=== PATIENT | female | born 1995 | race Caucasian/White ===

== ENCOUNTER 2016-05-26 16:05 | Emergency (ER) | payer MEDICAID ==
--- NOTE | 2016-05-26 16:13 | PD ---
HPI Chief Complaint contractions Date Seen: May 26, 2016 Time Seen: 16:15 (Aureliano Titus MD R2) Travel History International Travel<30 Days: No Contact w/Intl Traveler<30Days: No (Aureliano Titus MD R2) History of Present Illness HPI 20 year old G1 at 30 weeks gestation with EDC of August 04. She is presenting with cramping and contractions that started this morning at 10 AM. She describes the contractions as coming every 5 mins and being 8/10 pain, causing her to have to lie down. She has nausea with no vomiting. She has pain and pressure in the pelvic area. She has no dysuria or vaginal bleeding. She has good movements. She has no loss of fluids. She gets OB care at [facility] and reports no significant problems during this . (Aureliano Titus MD R2) History Past Medical History Medical History: Denies Significant Hx (Aureliano Tiuts MD) Obstetric History Obstetric History G1 at 30 weeks gestation Care at [facility] No complciations reported in this Taking vitamins (Aureliano Titus MD R2) Past Surgical History Narrative Surgical [place] teeth extraction (Aureliano Titus MD R2) Family History Family History: Negative (Aureliano Titus MD) Social History Alcohol Use: No Tobacco Use: No Substance Abuse: No (Aureliano Titus MD) Allergies-Medications (Allergen,Severity, Reaction): Coded Allergies: No Known Allergies (Unverified , 12/28/15) Home Meds No Active Prescriptions or Reported Meds Review of Systems Except as stated in HPI: all other systems reviewed are Neg (Aureliano Titus MD R2) Physical Exam Narrative GENERAL: Well-nourished, well-developed patient. SKIN: Warm and dry. HEAD: Normocephalic and atraumatic. EYES: No scleral icterus. No injection or drainage. ENT: No nasal drainage noted. Mucous membranes pink. Airway patent. NECK: Supple, trachea midline. No JVD. CARDIOVASCULAR: Regular rate and rhythm without murmurs, gallops, or rubs. RESPIRATORY: Breath sounds equal bilaterally. No accessory muscle use. ABDOMEN/GI: Abdomen soft, non-tender, bowel sounds present, no rebound, no guarding Gravid to 30 weeks size GENITOURINARY: External Genitalia: intact and normal in appearance Dilatation: 0 Effacement: long Station: Presentation: [-] Membranes: intact Uterine Contractions: none FHT's: Category: 1 Baseline: 150's Reactive: yes Variability: moderate Decels: none EXTREMITIES: No cyanosis or edema. BACK: Nontender without obvious deformity. No CVA tenderness. NEUROLOGICAL: Awake and alert. Motor and sensory grossly within normal limits. Five out of 5 muscle strength in all muscle groups. Normal speech. (Aureliano Titus MD R2) Data Data Vital Signs Reviewed: Yes (Aureliano Titus MD R2) MDM Medical Record Reviewed: Yes Interpretation(s) 20 year old G1 presenting with sensation of contractions and nausea. - Monitor for contractions - Oral hydration - If contractions present, obtain UA and FFN Narrative Course / MDM 20 year old G1 presenting with sensation of contractions and nausea. - One contraction total over 30 minute period - Reassuring strip - Cervix closed - Likely round ligament pain - Counseled on labor precautions, follow up with OB (Aureliano Titus MD R2) Attending Attestation The exam, history, and the medical decision-making described in the above note were completed with the assistance of the resident provider. I reviewed and agree with the findings presented. I attest that I had a [id number] encounter with the patient on the same day, and personally performed and documented my assessment and findings in the medical record. (Cintia Maynard MD) Diagnosis Diagnosis: Primary Impression: Round ligament pain Disposition: 01 DISCHARGE HOME Condition: Good Scripts No Active Prescriptions or Reported Meds Aureliano Titus MD R2 May 26, 2016 16:13 Cintia Maynard MD May 26, 2016 17:16
== END 2016-05-26 18:46 | disposition home or self-care (01) ==
LOC: HOBED 16:05
DX: O26.93 Pregnancy related conditions, unspecified, third trimester (principal); R10.2 Pelvic and perineal pain; Z3A.30 30 weeks gestation of pregnancy
CPT/HCPCS: 99284

== ENCOUNTER 2016-05-28 15:44 | Emergency (ER) | payer MEDICAID ==
--- NOTE | 2016-05-28 16:19 | PD ---
HPI Chief Complaint coughing, sneezing, sore throat Date Seen: May 28, 2016 Time Seen: 16:15 Travel History International Travel<30 Days: No Contact w/Intl Traveler<30Days: No History of Present Illness HPI 20 year old G1 at 30/2 weeks gestation with EDC of August 04. She is presenting with runny nose, coughing with yellow sputum, sore throat, and generalized body aches that started two days ago. She had three episodes of soft stools. No abdominal pain. Has mild nausea, no vomiting. She has no dyspnea or fevers. She has a history of asthma and is using her inhaler 4X a day for the last two days. She has good movements, no contractions, no vaginal bleeding, no loss of fluids. She did not get a flu shot this year. History Past Medical History Medical History: Denies Significant Hx Obstetric History Obstetric History G1 at 30 weeks gestation Care at [facility] No complciations reported in this Taking vitamins Past Surgical History Narrative Surgical [place] teeth extraction Family History Family History: Negative Social History Alcohol Use: No Tobacco Use: No Substance Abuse: No Allergies-Medications (Allergen,Severity, Reaction): Coded Allergies: No Known Allergies (Unverified , 12/28/15) Home Meds Active Scripts Azithromycin 500 Mg [id number] Mg PO DAILY #7 TAB Ref 0 Prov:Aureliano Titsu MD R2 05/28/16 Review of Systems Except as stated in HPI: all other systems reviewed are Neg Physical Exam Narrative GENERAL: Well-nourished, well-developed patient. SKIN: Warm and dry. HEAD: Normocephalic and atraumatic. EYES: No scleral icterus. No injection or drainage. ENT: No nasal drainage noted. Mucous membranes pink. Airway patent. NECK: Supple, trachea midline. No JVD. CARDIOVASCULAR: Regular rate and rhythm without murmurs, gallops, or rubs. RESPIRATORY: Breath sounds equal bilaterally. No accessory muscle use. ABDOMEN/GI: Abdomen soft, non-tender, bowel sounds present, no rebound, no guarding Gravid to 30 weeks size FHT's: Category: 1 Baseline: 140's Reactive: yes Variability: moderate Decels: none EXTREMITIES: No cyanosis or edema. BACK: Nontender without obvious deformity. No CVA tenderness. NEUROLOGICAL: Awake and alert. Motor and sensory grossly within normal limits. Five out of 5 muscle strength in all muscle groups. Normal speech. Data Data Vital Signs Reviewed: Yes MDM Medical Record Reviewed: Yes Interpretation(s) 20 year old G1 at 30/2 weeks gestation with EDC of August 04. She is presenting with runny nose, coughing with yellow sputum, sore throat, and generalized body aches that started two days ago. Likely viral URI. Also has history of asthma. - Tylenol 650 mg by mouth. - Encourage oral hydration. - Flu swab, encourage flu vaccine as outpatient - Continue using albuterol inhaler at home, follow up with PCP or OB within 2 to 3 days. - Return to OB ED for shortness of breath. Discussed with Dr. Graham Narrative Course / MDM 20 year old G1 at 30/2 weeks gestation with EDC of August 04 presents with URI, likely viral. - Can take Tylenol for symptom relief. - Azithromycin in case of bacterial superinfection. - Claritin PRN for runny nose. - Encourage good hydration - Continue using albuterol inhaler at home - Follow up with PCP or OB within 2 to 3 days. - Recommend flu vaccine. - Return to OB ED for shortness of breath. Discussed with Dr. Graham Diagnosis Diagnosis: Primary Impression: Viral URI with cough Disposition: DISCHARGE HOME Condition: Good Scripts Azithromycin 500 Mg [id number] Mg PO DAILY #7 TAB Ref 0 Prov:Aureliano Titus MD R2 05/28/16 Aureliano Titus MD R2 May 28, 2016 16:19 Disposition: DISCHARGE HOME Condition: Good Scripts Azithromycin 500 Mg [id number] Mg PO DAILY #7 TAB Ref 0 Prov:Aureliano Titus MD R2 05/28/16 Aureliano Titus MD R2 May 28, 2016 16:19
[2016-05-28] MEDS ORDERED: ACETAMINOPHEN 325 MG TAB PO ONE (16:30)
[2016-05-28] MEDS ORDERED: AZIT500T2 PO (17:23)
--- NOTE | 2016-05-28 17:29 | PD ---
History of Present Illness Date Seen: May 28, 2016 Time Seen: 16:30 History of Present Illness 30 wk IUP with URI signs and symptoms , no OB problem no bleeding SROM or CTXs , FHR reactive no CTX lungs clear flu swab negative Imp URI at 30 wks Plan - po Zpak , po antihistamines OTC& cough sryup PRN Tl Graham II, MD May 28, 2016 17:29
== END 2016-05-28 17:35 | disposition home or self-care (01) ==
LOC: HOBED 15:44
DX: J06.9 Acute upper respiratory infection, unspecified (principal); Z3A.30 30 weeks gestation of pregnancy
CPT/HCPCS: 87804; 99283

== ENCOUNTER 2016-07-13 11:15 | Emergency (ER) | payer MEDICAID ==
[~2016-07-13 11:15] MED LIST: AZIT500T2 PO
[2016-07-13 11:53] LABS: BLOOD, URINE NEG (NEG); COMMENT (UR) CULT NOT INDICATED; CULTURE IF INDICATED CULT NOT INDICATED; GLUCOSE,URINE NEG (NEG); KETONE, URINE NEG (NEG); MUCUS URINE FEW /lpf (OCC); NITRITE,URINE NEG (NEG); PH, URINE 6.5 (5.0-8.5); SQUAMOUS EPITHELIAL CELL URINE 10 /hpf (0-5); TRANSITIONAL EPI CELLS, URINE <1 /hpf; URINE COLOR YELLOW (YELLW/STRAW)
--- NOTE | 2016-07-13 11:54 | PD ---
HPI Chief Complaint lower abdomen cramping, pain with urination Date Seen: Jul 13, 2016 (Yonny Antunez MD R2) Travel History International Travel<30 Days: No Contact w/Intl Traveler<30Days: No (Yonny Antunez MD R2) History of Present Illness HPI Ms. Lambert is a 20 yo G1 at 36 6/7 weeks (DYLAN 08/04/2016) who presents with complaint of lower abdominal pressure and pain after urinating. Ms. Lambert states that these symptoms began this morning at approximately 3 AM; they've gradually worsened since she has been at work this morning. Patient reports that cramping is constant in nature rather than occurring at regular intervals. He reports the cramping is worsened after urination. Patient is urinating more frequently. Patient does not report fever or chills. Normal movement. Patient does not report vaginal bleeding or discharge. Patient reports unremarkable history with exception of mild asthma controlled with albuterol. Patient states she was swabbed for GBS last week but does not know her result. Para: 0 : 1 (Yonny Antunez MD R2) History Past Medical History Narrative Medical Asthmacontrolled with albuterol (Yonny Antunez MD R2) Obstetric History Obstetric History G1 (Yonny Antunez MD R2) Past Surgical History Surgical History: No Previous Surgery (Yonny Antunez MD R2) Family History Family History: Negative (Yonny Antunez MD R2) Social History Alcohol Use: No Tobacco Use: No Substance Abuse: No (Yonny Antunez MD R2) Allergies-Medications (Allergen,Severity, Reaction): Coded Allergies: No Known Allergies (Unverified , 12/28/15) Home Meds Active Scripts Azithromycin 500 Mg [id number] Mg PO DAILY #7 TAB Ref 0 Prov:Aureliano Titus MD R2 05/28/16 Review of Systems General / Constitutional: No: Fever, Chills Cardiovascular: No: Chest Pain or Discomfort Respiratory: No: Short of Breath Gastrointestinal: Abdominal Pain (lower 1 day), No: Vomiting Genitourinary: Frequency, Dysuria (Yonny Antunez MD R2) Physical Exam T 98.2 RR 18 BP 110/75 HR 75 Narrative GENERAL: Well-nourished, well-developed patient. SKIN: Warm and dry. HEAD: Normocephalic and atraumatic. EYES: No scleral icterus. No injection or drainage. ENT: No nasal drainage noted. Mucous membranes pink. Airway patent. CARDIOVASCULAR: Regular rate and rhythm without murmurs. RESPIRATORY: CTAB, normal rate ABDOMEN/GI: Abdomen soft, non-tender, bowel sounds present, no rebound, no guarding Gravid EXTREMITIES: No cyanosis or edema. NEUROLOGICAL: Awake and alert. Motor and sensory function grossly within normal limits. GENITOURINARY: External Genitalia: intact and normal in appearance Cervix: Dilatation:1 Effacement: 20% Station: -2 Presentation: V Membranes: Intact Uterine Contractions: Occ/irritability FHT's: Category:1 Baseline: 130 Reactive: Y Variability: Mod Decels: None (Yonny Antunez MD R2) Data Data Orders Urinalysis - C+S If Indicated (07/13/16 11:35) (Yonny Antunez MD R2) MDM Medical Record Reviewed: Yes Narrative Course / MDM 20 yo G1 at 36 6/7 weeks (DYLAN 08/04/2016) -Complaint of lower abdominal cramping/dysuria -Cat 1 rhythm -Cervix 1/20%/-2 -Irritability; no obvious contractions on CTG -PMH asthma; exam w/o wheezing and no respiratory complaints currently Plan: -Will check UA -Will monitor EFM Interval: UA resulted- not suggestive of UTI EFM reassuring No evidence of contractions; irritability Updated Plan: Due to lack of evidence of UTI, suspect patient's lower abdominal pain due to positioning, ligamentous pain, and/or uterine irritability. Patient reassured regarding benign etiology of her symptoms, and encouraged to follow up with her OBGYN. Patient also encouraged to stay hydrated. (Yonny Antunez MD R2) Plan Patient seen and examined. Agree with resident's assessment. Patient denies dysuria or hematuria. Hydration encouraged. (Jing Barrera MD) Diagnosis Diagnosis: Primary Impression: Round ligament pain Disposition: 01 DISCHARGE HOME Condition: Stable Patient Instructions: General Instructions, Early Labor Signs (ED) Departure Forms: Tests/Procedures, Work Release Enter return to work date: Jul 14, 2016 Yonny Antunez MD R2 Jul 13, 2016 11:54 Jing Barrera MD Jul 13, 2016 12:36
== END 2016-07-13 12:33 | disposition home or self-care (01) ==
LOC: HOBED 11:15
DX: O99.52 Diseases of the respiratory system complicating childbirth (principal); R10.2 Pelvic and perineal pain; R30.0 Dysuria; J45.909 Unspecified asthma, uncomplicated; Z3A.36 36 weeks gestation of pregnancy
CPT/HCPCS: 59025; 81001

== ENCOUNTER → 2016-07-18 | Emergency (ER) | payer MEDICAID ==
[~2016-07-18] MED LIST changes: +FERR325T PO; +IBUP-232 PO
--- NOTE | 2016-07-18 01:20 | PD ---
HPI Chief Complaint Lightheaded, feeling poorly after iron infusion Date Seen: Jul 18, 2016 Time Seen: 01:10 Travel History International Travel<30 Days: No Contact w/Intl Traveler<30Days: No Known Affected Area: No History of Present Illness HPI 20-year-old primigravida at 37+ weeks gestation who was just discharged from the outpatient unit in [facility] after receiving an iron infusion this evening. The patient states that she was there for about 8 hours getting her iron infusion with minimal oral intake. She felt lightheaded on the way home and became concerned and came here for evaluation. Para: 0 : 1 History Past Medical History Narrative Medical Asthma for which she uses an albuterol inhaler Obstetric History Obstetric History Primigravida with an uncomplicated course with the exception of iron deficiency Past Surgical History Narrative Surgical None Family History Family History: Negative Social History Alcohol Use: No Tobacco Use: No Substance Abuse: No Allergies-Medications (Allergen,Severity, Reaction): Coded Allergies: No Known Allergies (Unverified , 12/28/15) Home Meds Active Scripts Azithromycin 500 Mg [id number] Mg PO DAILY #7 TAB Ref 0 Prov:Aureliano Titus MD R2 05/28/16 Review of Systems Except as stated in HPI: all other systems reviewed are Neg Physical Exam Narrative GENERAL: Well-nourished, well-developed patient. SKIN: Warm and dry. HEAD: Normocephalic and atraumatic. EYES: No scleral icterus. No injection or drainage. ENT: No nasal drainage noted. Mucous membranes pink. Airway patent. NECK: Supple, trachea midline. No JVD. CARDIOVASCULAR: Regular rate and rhythm without murmurs, gallops, or rubs. RESPIRATORY: Breath sounds equal bilaterally. No accessory muscle use. ABDOMEN/GI: Abdomen soft, non-tender, bowel sounds present, no rebound, no guarding Gravid to [-] weeks size Fundal Height: [-] GENITOURINARY: External Genitalia: intact and normal in appearance BUS glands: [-] Cervix: [-] Dilatation: [-] Effacement: [-] Station: [-] Presentation: [-] Membranes: [intact or ruptured] Uterine Contractions: [-] FHT's: Category: [-] Baseline: [-] Reactive: [-] Variability: [-] Decels: [-] EXTREMITIES: No cyanosis or edema. BACK: Nontender without obvious deformity. No CVA tenderness. NEUROLOGICAL: Awake and alert. Motor and sensory grossly within normal limits. Five out of 5 muscle strength in all muscle groups. Normal speech. Data Data Vital Signs Reviewed: Yes MDM Medical Record Reviewed: No Narrative Course / MDM Assessment: 37+ week intrauterine with near syncope following iron infusion Plan: Her vital signs are stable here with excellent oxygen saturation and no evidence of acute allergic reaction. The heart rate is category 1. Her urine is quite concentrated and she admits to minimal oral intake over the past 8 hours. She is encouraged with oral hydration and asked to follow up as planned with her care team. Diagnosis Diagnosis: Primary Impression: 37 weeks gestation of Additional Impression: Vasovagal near syncope Disposition: 01 DISCHARGE HOME Condition: Good Abdoulaye Gómez MD Jul 18, 2016 01:20
== END | disposition home or self-care (01) ==
LOC: HOBED 00:01
DX: O26.93 Pregnancy related conditions, unspecified, third trimester (principal); O99.513 Diseases of the respiratory system complicating pregnancy, third trimester; R55 Syncope and collapse; J45.909 Unspecified asthma, uncomplicated; Z3A.37 37 weeks gestation of pregnancy
CPT/HCPCS: 59025

== ENCOUNTER 2016-07-30 11:57 | Inpatient (IN) | payer MEDICAID ==
[~2016-07-30] VITALS: Ht 152.4 cm; Wt 64.0 kg
[2016-07-30] VITALS (56 sets, daily range): BP systolic 102–135; BP diastolic 63–105; PULSE 52–86; RESP 16–18; TEMP 97.4–98.4
[~2016-07-30 11:57] MED LIST changes: -FERR325T PO; -IBUP-232 PO
--- NOTE | 2016-07-30 12:42 | PD ---
HPI Chief Complaint Contractions Date Seen: Jul 30, 2016 Travel History International Travel<30 Days: No Contact w/Intl Traveler<30Days: No History of Present Illness HPI Ms. Lambert is a 21 yo G1 at 39 2/7 weeks (DYLAN 08/04/2016) who presents with contractions. Patient reports that she began feeling contractions at approximately 1 AM last night and thought she had possible rupture membranes; she sought evaluation [facility] for for these at approximately 2 AM. Per patient, and it are was performed and was negative. Patient states that she was dilated to 1 cm on cervical exam. Since initial evaluation, patient states that she has had gradual worsening of contractions and that they're occurring every 23 minutes. Patient states that she has not had any additional leakage of vaginal fluid suspicious for ruptured membranes this morning. Patient denies vaginal bleeding. Patient reports normal movement. Patient does not report headache, visual changes, shortness of breath, leg swelling, or dysuria. Patient reports unremarkable history with exception of anemia requiring iron transfusion. Per EMR, patient's hemoglobin was 11.8 12/2015. [ Per discussion with OB ED staff, patient's records not available until 1 PM]. Patient reports reassuring labs and ultrasounds during . Para: 0 : 1 History Past Medical History Narrative Medical Asthmacontrolled with albuterol Anemia requiring iron transfusion during Obstetric History Obstetric History G1 Past Surgical History Surgical History: No Previous Surgery Family History Family History: Negative Social History Alcohol Use: No Tobacco Use: No Substance Abuse: No Allergies-Medications (Allergen,Severity, Reaction): Coded Allergies: No Known Allergies (Unverified , 12/28/15) Home Meds Active Scripts Azithromycin 500 Mg [id number] Mg PO DAILY #7 TAB Ref 0 Prov:Aureliano Titus MD R2 05/28/16 Review of Systems General / Constitutional: No: Fever, Chills HENT: No: Headaches Cardiovascular: No: Chest Pain or Discomfort Respiratory: No: Short of Breath Gastrointestinal: Abdominal Pain (with contractions), No: Vomiting Genitourinary: No: Dysuria Physical Exam BP 127/81 HR 90 T 98.3 RR 18 Narrative GENERAL: Well-nourished, well-developed patient. SKIN: Warm and dry. HEAD: Normocephalic and atraumatic. EYES: No scleral icterus. No injection or drainage. ENT: No nasal drainage noted. Mucous membranes pink. Airway patent. NECK: Supple, trachea midline. No JVD. CARDIOVASCULAR: Regular rate and rhythm without murmurs. RESPIRATORY: CTAB, normal rate ABDOMEN/GI: Abdomen soft, non-tender, bowel sounds present, no rebound, no guarding Gravid EXTREMITIES: No cyanosis or edema. NEUROLOGICAL: Awake and alert. Motor and sensory function grossly within normal limits. GENITOURINARY: External Genitalia: intact and normal in appearance Cervix: Dilatation: 3 Effacement: 90% Station:0 Presentation: Vertex Membranes: Intact Uterine Contractions: Q23 minutes FHT's: Category: 1 Baseline: 130 Reactive: Y Variability: Moderate Decels: None Data Data Vital Signs Reviewed: Yes MDM Medical Record Reviewed: Yes Narrative Course / MDM 21 yo G1 at 39 2/7 weeks (DYLAN 08/04/2016) who presents with contractions -Contractions 23 minutes -Cervix 3/90%/0 -Category 1 rhythm -GBS negative - records pending Plan: -Will monitor EFM -Will recheck cervix in ~1 hr Interval: -On recheck cervical dilation to 5 cm -Will plan to admit for active labor Yonny Antunez MD R2 Jul 30, 2016 12:42
[2016-07-30] MEDS ORDERED: LACTATED RINGER'S 1000 ML INJ 1,000 ML IV PRN (13:48)
--- NOTE | 2016-07-30 13:48 | PD ---
History of Present Illness Date Seen: Jul 30, 2016 History of Present Illness Attending note; This patient is a 21-year-old 1 para 0 presently 39 weeks and 2 days who presented with the onset of contractions every 2-3 minutes denies ruptured membranes or vaginal bleeding care with the [facility] [employer] courses been unremarkable . GBS is negative per the car that the patient has with her No known drug allergies No major medical problems On reexamination after allowing the patient to walk she is 100% effaced 5 cm dilated with the vertex at a 0 station Blood pressure is 127/81 Assessment IUP at 39 weeks and 2 days Active labor GBS negative Plan Admit External monitoring IV fluid hydration CBC type and screen Epidural for pain management Anticipate vaginal delivery Faby Fitzgerald MD Jul 30, 2016 13:47
[2016-07-30] MEDS ORDERED: SODIUM CHLORID 0.9% 500 ML INJ 500 ML IV PRN (14:00)
[2016-07-30] MEDS ORDERED: LIDOCAINE HCL 1% 50 ML VIAL I-DERMAL PRN (14:00)
[2016-07-30] MEDS ORDERED: CITRIC ACID-SODIUM CITRATE LIQ 30 ML UDC PO SCH (14:00)
[2016-07-30] MEDS ORDERED: OXYTOCIN 30 UNITS-500ML PREMIX 500 ML IV ONE (14:00)
[2016-07-30] MEDS ORDERED: LIDOCAINE HCL 1% 50 ML VIAL INFIL PRN (14:00)
[2016-07-30] MEDS ORDERED: MINERAL OIL 10 ML VIAL TOPICAL PRN (14:00)
[2016-07-30 14:08] LABS: AUTOMATED NEUTROPHIL # 7.5 TH/MM3 (1.8-7.7); BASOPHIL # 0.1 TH/MM3 (0-0.2); BASOPHIL % 0.8 % (0.0-2.0); EOSINOPHIL % 0.3 % (0.0-4.0); HEMATOCRIT 29.9 % (35.0-46.0); HEMO FLAGS AUTO DIFF; LYMPH % 16.1 % (9.0-44.0); LYMPHOCYTE # 1.6 TH/MM3 (1.0-4.8); MEAN CELL VOLUME 76.2 FL (80.0-100.0); MEAN CORPUSCULAR HEMOGLOBIN 23.6 PG (27.0-34.0); MONO % 5.6 % (0.0-8.0); NEUT % 77.2 % (16.0-70.0); PLATELET COUNT 142 TH/MM3 (150-450); RED BLOOD COUNT 3.92 MIL/MM3 (4.00-5.30); RED CELL DISTRIBUTION WIDTH 22.9 % (11.6-17.2); WHITE BLOOD COUNT 9.7 TH/MM3 (4.0-11.0)
[2016-07-30] MEDS ORDERED: SODIUM CHLOR 0.9% 1000 ML INJ 1,000 ML IV PRN (14:08)
[2016-07-30 14:12] LABS: BLOOD, URINE NEG (NEG); COMMENT (UR) CULT NOT INDICATED; CULTURE IF INDICATED CULT NOT INDICATED; GLUCOSE,URINE NEG (NEG); KETONE, URINE NEG (NEG); NITRITE,URINE NEG (NEG); SQUAMOUS EPITHELIAL CELL URINE 2 /hpf (0-5); URINE COLOR YELLOW (YELLW/STRAW)
[2016-07-30] MEDS ORDERED: ePHEDrine/NS 25 MG/5 ML SYR ONE (14:31)
[2016-07-30] MEDS ORDERED: fentaNYL 2MCG-BUPIV 0.125% INJ 100 ML ONE (14:31)
[2016-07-30 14:36] LABS: OVALOCYTES 1+ (NORMAL); SCAN/DIFF AUTO DIFF CONFIRMED; TEARDROP RBCS 1+ (NORMAL)
[2016-07-30 14:37] LABS: PLATELET ESTIMATE SMEAR LOW (NORMAL); PLATELET MORPHOLOGY ENLARGED (NORMAL)
[2016-07-30] MEDS ORDERED: ePHEDrine/NS 25 MG/5 ML SYR IV PRN (15:30)
--- NOTE | 2016-07-30 15:34 | PD.LABORPN ---
Subjective Subjective Patient is comfortable with an epidural Objective Vital Signs Vital Signs Date Time Temp Pulse Resp B/P Pulse Ox O2 Delivery O2 Flow Rate FiO2 07/30/16 15:15 70 119/77 07/30/16 15:15 64 07/30/16 15:10 67 07/30/16 15:10 69 116/76 07/30/16 15:07 72 116/75 07/30/16 15:05 78 07/30/16 15:00 78 07/30/16 15:00 72 117/74 07/30/16 14:55 67 120/75 07/30/16 14:55 97.6 67 18 07/30/16 14:51 73 07/30/16 14:51 102/81 07/30/16 14:50 72 07/30/16 14:46 81 07/30/16 14:46 129/87 07/30/16 14:45 73 07/30/16 14:41 112/84 07/30/16 14:41 80 07/30/16 14:40 67 128/105 07/30/16 14:35 66 07/30/16 14:30 62 07/30/16 14:26 66 122/79 07/30/16 14:25 18 07/30/16 14:25 85 Objective Pelvic Exam: Cervix: [-] Midline Dilatation: [-] 8 cm Effacement: [-] 100% effaced Station: [-] +1 station Presentation: [-] Vertex Membranes: [ ruptured] artificial rupture of membranes light meconium Uterine Contractions: [-] Irregular FHT's: Category: [-] Had what appeared to be a variable deceleration had been category 1 until that time with oxygen positional change and IV fluids reverted back to a category 1 Baseline: [-] 1:30 Reactive: [-] + Accelerations up to 150 Variability: [-] [id number] variability Decels: [-] A variable seen Assessment/Plan Assessment and Plan 21-year-old at term Active labor Will be entering second stage Light meconium Positional changes IV fluid hydration O2 Anticipate vaginal delivery Faby Fitzgerald MD Jul 30, 2016 15:34
[2016-07-30] MEDS: LACTATED RINGER'S 1000 ML INJ 1,000 ML IV SCH (15:58)
[2016-07-30] MEDS ORDERED: NO SYSTEM NARCOTICS PRN (16:00)
[2016-07-30] MEDS ORDERED: MEASLES, MUMPS, RUBELLA VACCINE 0.5 ML VIAL SQ ONE (16:00)
[2016-07-30] MEDS ORDERED: DO NOT ADMINISTER ANTICOAGULANTS PRN (16:00)
[2016-07-30] MEDS ORDERED: fentaNYL 2MCG-BUPIV 0.125% 100 ML EPIDURAL SCH (16:00)
[2016-07-30] MEDS ORDERED: DIPHTH/TETANUS/ACEL PERTUSSIS (BOOSTER) 0.5 ML VIAL/PFS IM ONE (16:00)
--- NOTE | 2016-07-30 18:26 | PD.OB.DELI ---
Delivery Date: Jul 30, 2016 Anesthesia: Epidural Episiotomy: None Vaginal Delivery: Normal Presentation: Occiput anterior Nuchal Cord: None Delayed cord clamping (45 sec): Yes : Female One Minute : 8 Five Minute : 9 Weight: 2935 Placenta: Spontaneous delivery Additional Information Patient progressed to completely dilated completely effaced, delivered over an intact perineum a viable female infant weight 2935 g Apgars of 8 at 1 minute and 9 at 5 minutes, placenta delivered Placenta delivered spontaneously and intact There was no lacerations Uterus is firm No active bleeding Estimated blood loss of 300 cc Mother stable baby stable Delivery review was done patient's questions answered Faby Fitzgerald MD Jul 30, 2016 18:26
[2016-07-30] MEDS ORDERED: ONDANSETRON ODT 4 MG TAB PO PRN (18:30)
[2016-07-30] MEDS ORDERED: ALUMINUM/MAGNESIUM/SIMETH 30 ML CUP PO PRN (18:30)
[2016-07-30] MEDS ORDERED: IBUPROFEN 600 MG TAB PO PRN (18:30)
[2016-07-30] MEDS ORDERED: WITCH HAZEL 50%/GLYCERIN 12.5% 40 PAD JAR TOPICAL PRN (18:30)
[2016-07-31] MEDS: ACETAMINOPHEN 325 MG TAB PO PRN (00:46)
--- NOTE | 2016-07-31 08:12 | HHI.OB ---
Subjective Post Day: 1 Remarks Ms. Lambert is a 21 yo who is PPD 1 from (07/30 at 1755) Ms. Lambert was afebrile with stable vital signs overnight. Patient reports that she is doing well at this time. Patient reports mild vaginal bleeding. Patient's pain is controlled at this time. Patient ambulating well. Patient reports dysuria yesterday which resolved. Patient does not report shortness or breath or leg swelling. No dizziness. Patient passing gas. Patient . Objective Vitals/I&O Vital Signs Date Time Temp Pulse Resp B/P Pulse Ox O2 Delivery O2 Flow Rate FiO2 07/30/16 21:00 97.6 52 18 118/74 07/30/16 19:46 69 120/73 07/30/16 19:45 16 07/30/16 19:23 98.4 07/30/16 19:22 16 07/30/16 19:16 78 106/70 07/30/16 18:46 58 114/94 07/30/16 18:37 18 07/30/16 18:31 66 131/85 07/30/16 18:15 97.4 18 07/30/16 18:15 63 126/82 07/30/16 18:01 86 127/63 07/30/16 17:45 72 07/30/16 17:45 82 135/91 07/30/16 17:30 59 122/83 07/30/16 17:30 62 07/30/16 17:15 67 120/83 07/30/16 17:15 68 07/30/16 17:10 65 07/30/16 17:05 64 07/30/16 17:00 65 07/30/16 17:00 62 123/72 07/30/16 16:55 78 07/30/16 16:50 71 07/30/16 16:45 75 123/81 07/30/16 16:45 71 07/30/16 16:40 61 07/30/16 16:36 97.7 18 07/30/16 16:30 73 07/30/16 16:30 62 116/81 07/30/16 16:25 64 07/30/16 16:20 59 07/30/16 16:15 64 117/84 07/30/16 16:10 67 07/30/16 16:05 67 07/30/16 16:00 78 07/30/16 16:00 71 120/78 07/30/16 15:59 18 07/30/16 15:56 18 07/30/16 15:55 70 07/30/16 15:50 65 07/30/16 15:46 62 121/75 07/30/16 15:45 67 07/30/16 15:40 59 07/30/16 15:35 64 07/30/16 15:30 58 123/76 07/30/16 15:30 61 07/30/16 15:25 54 07/30/16 15:22 65 119/72 07/30/16 15:20 58 07/30/16 15:15 70 119/77 07/30/16 15:15 64 07/30/16 15:10 67 07/30/16 15:10 69 116/76 07/30/16 15:07 72 116/75 07/30/16 15:05 78 07/30/16 15:00 78 07/30/16 15:00 72 117/74 07/30/16 14:55 67 120/75 07/30/16 14:55 97.6 67 18 07/30/16 14:51 73 07/30/16 14:51 102/81 07/30/16 14:50 72 07/30/16 14:46 81 07/30/16 14:46 129/87 07/30/16 14:45 73 07/30/16 14:41 112/84 07/30/16 14:41 80 07/30/16 14:40 67 128/105 07/30/16 14:35 66 07/30/16 14:30 62 07/30/16 14:26 66 122/79 07/30/16 14:25 18 07/30/16 14:25 85 Objective Remarks GENERAL: Well-nourished, well-developed patient. CARDIOVASCULAR: Regular rate and rhythm without murmurs. RESPIRATORY: CTAB, normal rate ABDOMEN/GI: Abdomen soft, non-tender. Fundus: Firm, non-tender at umbilicus. GENITOURINARY: Light to moderate bleeding. EXTREMITIES: No cyanosis or edema, non-tender, without signs of DVT. Medications and IVs Current Medications Medications (Trade) Dose Ordered Sig/Shira Route Start Time Stop Time Status Last Admin Lactated Ringer's 1,000 ml @ 125 mls/hr Q8H IV 07/30/16 13:48 07/30/16 15:58 Lactated Ringer's 1,000 ml @ 3,000 mls/hr Q20M PRN IV 07/30/16 13:48 (NS 1000 ml Inj) 1,000 ml @ 100 mls/hr Q10H PRN IV 07/30/16 14:08 (fentaNYL INJ) 50 mcg Q1H PRN IV PUSH 07/30/16 14:00 (fentaNYL INJ) 100 mcg Q1H PRN IV PUSH 07/30/16 14:00 (Muri-Lube Oil) 10 ml UNSCH PRN TOPICAL 07/30/16 14:00 Miscellaneous Information No systemic narcotics to be given except... UNSCH PRN .XX 07/30/16 16:00 07/31/16 15:59 Miscellaneous Information DO NOT ADMINISTER ANY ANTICOAGUL... UNSCH PRN .XX 07/30/16 16:00 07/31/16 15:59 (fentaNYL 2MCG-BUPIV 0.125% INJ) 100 ml @ 0 mls/hr TITRATE EPIDURAL 07/30/16 16:00 07/30/16 15:59 (ePHEDrine/NS 25 MG/5 ML SYR) 10 mg UNSCH PRN IV 07/30/16 15:30 07/31/16 15:29 (Tylenol) 650 mg Q4H PRN PO 07/30/16 18:30 07/31/16 00:46 (Motrin) 600 mg Q6H PRN PO 07/30/16 18:30 (Tucks Pads) 1 applic QID PRN TOPICAL 07/30/16 18:30 (Mag-Al Plus Susp Liq) 15 ml Q8H PRN PO 07/30/16 18:30 (Zofran Odt) 4 mg Q6H PRN PO 07/30/16 18:30 Assessment/Plan Problem List: (1) care and examination (2) Anemia Assessment and Plan 21 yo who is PPD 1 from (07/30 at 1755) Routine care -PRN Motrin/Percocet -Continue to encourage ambulation -Continue to encourage -Continue to monitor VS, vaginal bleeding -Continue stool softener -Encourage ; provide assistance as needed Anemia Impression: Hemoglobin 9.3 on admission; PMH anemia during to Hgb ~6 and requiring iron transfusion -Continue home Ferrous Sulfate 325mg TID Discharge Planning Anticipate discharge 08/01 Yonny Antunez MD R2 Jul 31, 2016 08:12
[2016-07-31] MEDS: FERROUS SULFATE 325 MG (65 MG ELEMENTAL IRON) TAB PO SCH ×2 (21:00→21:32)
[2016-08-01] MEDS: ACETAMINOPHEN 325 MG TAB PO PRN (03:22)
[2016-08-01 07:45] VITALS: BP 118/78; PULSE 58; RESP 20; TEMP 97.7
[2016-08-01] MEDS: LACTATED RINGER'S 1000 ML INJ 1,000 ML IV SCH (09:04)
[2016-08-01] MEDS: FERROUS SULFATE 325 MG (65 MG ELEMENTAL IRON) TAB PO SCH (09:08)
[2016-08-01] MEDS ORDERED: FERR325T PO (10:10)
[2016-08-01] MEDS ORDERED: IBUP-232 PO (10:10)
--- NOTE | 2016-08-01 10:10 | HHI.DCPOC ---
Discharge Care Plan Diagnosis: (1) care and examination Report Symptoms to Your Doctor -Temperate above 100.5 degrees -Unusual pain or calf pain -Increased vaginal bleeding -Painful or difficulty urinating -Feelings of extreme sadness or anxiety after 2 weeks Goals to Promote Your Health * To prevent worsening of your condition and complications * To maintain your health at the optimal level Directions to Meet Your Goals Take your medications as prescribed Follow your dietary instruction Follow activity as directed Ensure plenty of rest for recovery Drink fluids for hydration Keep your appointments as scheduled Take your immunizations and boosters as scheduled If your symptoms worsen call your PCP, if no PCP go to Urgent Care Center or Emergency Room Smoking is Dangerous to Your Health. Avoid second hand smoke Call the 24-hour crisis hotline for domestic abuse at Yonny Antunez MD R2 Aug 01, 2016 10:10
--- NOTE | 2016-08-01 10:14 | HHI.OB ---
Subjective Post Day: 2 Remarks Ms. Lambert is a 21 yo who is PPD 2 from (07/30 at 1755) Ms. Lambert was afebrile with stable vital signs overnight. Patient doing well; she still has some cramping pain controlled with Motrin. Patient reports mild vaginal bleeding. Patient ambulating well. No dysuria, shortness or breath, or leg swelling. Patient passing gas normally. Patient well. (Yonny Antunez MD R2) Remarks Patient seen and evaluated with resident under direct supervision, agree with assessment and plan. (Abdoulaye Gómez MD) Objective Vitals/I&O Vital Signs Date Time Temp Pulse Resp B/P Pulse Ox O2 Delivery O2 Flow Rate FiO2 08/01/16 07:45 97.7 58 20 118/78 Objective Remarks GENERAL: Well-nourished, well-developed patient. CARDIOVASCULAR: Regular rate and rhythm without murmurs. RESPIRATORY: CTAB, normal rate ABDOMEN/GI: Abdomen soft, non-tender. Fundus: Firm, non-tender at umbilicus. GENITOURINARY: Light to moderate bleeding. EXTREMITIES: No cyanosis or edema, non-tender, without signs of DVT. Medications and IVs Current Medications Medications (Trade) Dose Ordered Sig/Shira Route Start Time Stop Time Status Last Admin Lactated Ringer's 1,000 ml @ 125 mls/hr Q8H IV 07/30/16 13:48 07/30/16 15:58 Lactated Ringer's 1,000 ml @ 3,000 mls/hr Q20M PRN IV 07/30/16 13:48 (NS 1000 ml Inj) 1,000 ml @ 100 mls/hr Q10H PRN IV 07/30/16 14:08 (fentaNYL INJ) 50 mcg Q1H PRN IV PUSH 07/30/16 14:00 (fentaNYL INJ) 100 mcg Q1H PRN IV PUSH 07/30/16 14:00 Mineral Oil 10 ml 10 ml UNSCH PRN TOPICAL 07/30/16 14:00 (fentaNYL 2MCG-BUPIV 0.125% INJ) 100 ml @ 0 mls/hr TITRATE EPIDURAL 07/30/16 16:00 07/30/16 15:59 (Tylenol) 650 mg Q4H PRN PO 4/27/17 18:30 08/01/16 03:22 (Motrin) 600 mg Q6H PRN PO 07/30/16 18:30 (Tucks Pads) 1 applic QID PRN TOPICAL 07/30/16 18:30 (Mag-Al Plus Susp Liq) 15 ml Q8H PRN PO 07/30/16 18:30 (Zofran Odt) 4 mg Q6H PRN PO 07/30/16 18:30 (Ferrous Sulfate) 325 mg BID PO 07/31/16 09:00 08/01/16 09:08 (Yonny Antunez MD R2) Assessment/Plan Problem List: (1) care and examination (2) Anemia Assessment and Plan 21 yo who is PPD 2 from (07/30 at 1755) Routine care -PRN Motrin/Percocet -Continue to encourage ambulation -Continue to encourage -Continue to monitor VS, vaginal bleeding -Continue stool softener -Encourage ; provide assistance as needed Anemia Impression: Hemoglobin 9.3 on admission; PMH anemia during to Hgb ~6 and requiring iron transfusion -Continue home Ferrous Sulfate 325mg TID Discharge Planning Anticipate discharge today (Yonny Antunez MD R2) Yonny Antunez MD R2 Aug 01, 2016 10:14 Abdoulaye Gómez MD August 03, 2016 07:43
== END 2016-08-01 13:19 | disposition home or self-care (01) | DRG 775 ==
LOC: HOBED 11:57 → H2EA 13:37 → H1EA 20:48
PROVIDERS: ADMIT Obstetrics & Gynecology; ATTEND Obstetrics & Gynecology
PROC: 10E0XZZ Delivery of Products of Conception, External Approach (ICD-10-PCS; principal; 2016-07-30)
PROC: 00HU33Z Insertion of Infusion Device into Spinal Canal, Percutaneous Approach (ICD-10-PCS; 2016-07-30)
PROC: 3E0R3CZ (ICD-10-PCS; 2016-07-30)
DX: O99.02 Anemia complicating childbirth (principal); D64.9 Anemia, unspecified; O77.0 Labor and delivery complicated by meconium in amniotic fluid; Z3A.39 39 weeks gestation of pregnancy; O99.52 Diseases of the respiratory system complicating childbirth; J45.909 Unspecified asthma, uncomplicated; R30.0 Dysuria; Z37.0 Single live birth
CPT/HCPCS: 81001; 85025; 86900; 86901; 90715; 99285; J7120

== ENCOUNTER 2017-01-06 15:53 | Emergency (ER) | payer MEDICAID ==
[~2017-01-06] VITALS: Ht 154.9 cm; Wt 53.5 kg
[~2017-01-06 15:53] MED LIST changes: +ALBUAER3 INH; -AZIT500T2 PO
[2017-01-06 15:54] VITALS: BP 128/79; PULSE 59; RESP 16; TEMP 98.2; O2SAT 99
[2017-01-06] MEDS ORDERED: IOHEXOL 350 MG/ML 10 ML VIAL (for RAD DIAG) IVCONTRAST ONE (15:54)
--- NOTE | 2017-01-06 16:08 | PD ---
Physical Exam Date Seen by Provider: Jan 06, 2017 Time Seen by Provider: 16:08 Narrative 21 yo female here for abdominal pain. Feeling weak. had a IUD inserted recently and symptoms started since. Bleeding restarted. unsure if related. No other medical issues. Vitals are stable in triage. Awaiting bed placement. Data Data Last Documented VS Vital Signs Date Time Temp Pulse Resp B/P (MAP) Pulse Ox O2 Delivery O2 Flow Rate FiO2 01/06/17 15:54 98.2 59 16 128/79 (95) 99 Room Air [facility] [place] Medical Record Reviewed: Yes Supervised Visit with CLAUDIA: No Sebas Erazo Jan 06, 2017 16:08
[2017-01-06 16:34] LABS: AUTOMATED NEUTROPHIL # 4.8 TH/MM3 (1.8-7.7); BASOPHIL % 0.6 % (0.0-2.0); EOSINOPHIL # 0.1 TH/MM3 (0-0.4); EOSINOPHIL % 1.5 % (0.0-4.0); HEMO FLAGS DIFF FINAL; LYMPH % 27.2 % (9.0-44.0); MEAN CELL VOLUME 86.7 FL (80.0-100.0); MEAN CORPUSCULAR HEMOGLOBIN 28.5 PG (27.0-34.0); MEAN CORPUSCULAR HGB CONC 32.9 % (32.0-36.0); MONO % 5.3 % (0.0-8.0); NEUT % 65.4 % (16.0-70.0); PLATELET COUNT 227 TH/MM3 (150-450); RED BLOOD COUNT 4.15 MIL/MM3 (4.00-5.30); RED CELL DISTRIBUTION WIDTH 14.4 % (11.6-17.2); WHITE BLOOD COUNT 7.4 TH/MM3 (4.0-11.0)
[2017-01-06 16:38] LABS: BLOOD, URINE MOD (NEG); COMMENT (UR) CULT NOT INDICATED; CULTURE IF INDICATED CULT NOT INDICATED; GLUCOSE,URINE NEG (NEG); KETONE, URINE NEG (NEG); NITRITE,URINE NEG (NEG); PH, URINE 7.5 (5.0-8.5); SQUAMOUS EPITHELIAL CELL URINE 1 /hpf (0-5); URINE COLOR YELLOW (YELLW/STRAW)
[2017-01-06 16:53] LABS: ANION GAP 7 MEQ/L (5-15); AST (GOT) 15 U/L (15-37); BICARBONATE 25.9 MEQ/L (21.0-32.0); BLOOD UREA NITROGEN 14 MG/DL (7-18); CHLORIDE 107 MEQ/L (98-107); GLOMERULAR FILTRATION RATE 86 ML/MIN (>89); MAGNESIUM 2.1 MG/DL (1.5-2.5); POTASSIUM 4.3 MEQ/L (3.5-5.1); SODIUM (NA) 140 MEQ/L (136-145)
[2017-01-06 16:54] LABS: ALT (GPT) 22 U/L (10-53)
[2017-01-06 16:56] LABS: ALKALINE PHOSPHATASE 132 U/L (45-117); TOTAL BILIRUBIN ADULT 0.4 MG/DL (0.2-1.0)
[2017-01-06] MEDS ORDERED: DIATRIZOATE MEGLUM/DIATRIZOATE SOD 9 ML CUP ONE (17:04)
--- NOTE | 2017-01-06 17:05 | PD ---
HPI Chief Complaint: Wet Chemistry Analyst Problem/Complaint Time Seen by Provider: 16:56 Travel History International Travel<30 days: No Contact w/Intl Traveler<30days: No Traveled to known affect area: No History of Present Illness HPI 21 year-old female with no significant medical history presents to emergency department for evaluation of possible IUD complication. Patient had IUD placed 1 week ago. She states she developed lower abdominal pain, nausea, vomiting and some dizziness since it was placed. She did call [facility] but was waiting in the emergency department when the office call back. She states the pain is a constant, achy, 6 out of 10. It does not radiate anywhere. She denies any urinary symptoms. She has had intercourse since the IUD was placed. Denies any vaginal discharge. She does have some bleeding. She is 5 months . She has no other symptoms to report. PFSH Past Medical History Anemia: Yes Diminished Hearing: No ?: Not LMP: irrregular : 1 Para: 1 Past Surgical History Oral Surgery: Yes (wisdom teeth) Social History Alcohol Use: Yes (rarely) Tobacco Use: No Substance Use: No Allergies-Medications (Allergen,Severity, Reaction): Coded Allergies: ferumoxytol (Verified Allergy, Severe, Anaphylaxis, 12/24/16) iron (Verified Allergy, Severe, Anaphylaxis, 12/24/16) Reported Meds & Prescriptions Reported Meds & Active Scripts Active No Active Prescriptions or Reported Medications Review of Systems Except as stated in HPI: all other systems reviewed are Neg Physical Exam Narrative GENERAL: Well-nourished female patient, in no acute distress SKIN: Focused skin assessment warm/dry. HEAD: Atraumatic. Normocephalic. EYES: Pupils equal and round. No scleral icterus. No injection or drainage. ENT: No nasal bleeding or discharge. Mucous membranes pink and moist. NECK: Trachea midline. No JVD. CARDIOVASCULAR: Regular rate and rhythm. No murmur appreciated. RESPIRATORY: No accessory muscle use. Clear to auscultation. Breath sounds equal bilaterally. GASTROINTESTINAL: Abdomen soft, nondistended. Right lower quadrant tenderness to palpation. Positive rebound tenderness. Mild guarding.. Hepatic and splenic margins not palpable. GENITOURINARY: Normal external genitalia without lesions or erythema. Vaginal vault a small amount of blood. Cervical os was closed a blood clot noted.. No cervical motion tenderness. Uterus nontender and nonenlarged. Bilateral adnexa nontender without masses. I am able to visualize the strings of the IUD. MUSCULOSKELETAL: No obvious deformities. No clubbing. No cyanosis. No edema. NEUROLOGICAL: Awake and alert. No obvious cranial nerve deficits. Motor grossly within normal limits. Normal speech. PSYCHIATRIC: Appropriate mood and affect; insight and judgment normal. Data Data Last Documented VS Vital Signs Date Time Temp Pulse Resp B/P (MAP) Pulse Ox O2 Delivery O2 Flow Rate FiO2 01/06/17 15:54 98.2 59 16 128/79 (95) 99 Room Air Orders Orders Complete Blood Count With Diff (01/06/17 16:06) Comprehensive Metabolic Panel (01/06/17 16:06) Magnesium (Mg) (01/06/17 16:06) Ed Urine Pregnancytest Poc (01/06/17 16:06) Urinalysis - C+S If Indicated (01/06/17 16:09) Ct Abd/Pel W Iv Contrast(Rout) (01/06/17 ) Wet Prep Profile (01/06/17 17:02) Gc And Chlamydia Pcr (01/06/17 17:02) Diatrizoate Liq ( Gastroangelina Liq) (01/06/17 17:04) Diatrizoate Liq (Md Harg[place] Liq) (01/06/17 17:45) Oral Contrast - Adult (01/06/17 17:50) Iohexol 350 Inj (Omnipaque 350 Inj) (01/06/17 15:54) Labs Laboratory Tests Test 01/06/17 16:20 01/06/17 17:30 White Blood Count 7.4 TH/MM3 Red Blood Count 4.15 MIL/MM3 Hemoglobin 11.8 GM/DL Hematocrit 36.0 % Mean Corpuscular Volume 86.7 FL Mean Corpuscular Hemoglobin 28.5 PG Mean Corpuscular Hemoglobin Concent 32.9 % Red Cell Distribution Width 14.4 % Platelet Count 227 TH/MM3 Mean Platelet Volume 10.6 FL Neutrophils (%) (Auto) 65.4 % Lymphocytes (%) (Auto) 27.2 % Monocytes (%) (Auto) 5.3 % Eosinophils (%) (Auto) 1.5 % Basophils (%) (Auto) 0.6 % Neutrophils # (Auto) 4.8 TH/MM3 Lymphocytes # (Auto) 2.0 TH/MM3 Monocytes # (Auto) 0.4 TH/MM3 Eosinophils # (Auto) 0.1 TH/MM3 Basophils # (Auto) 0.0 TH/MM3 CBC Comment DIFF FINAL Differential Comment Urine Color YELLOW Urine Turbidity HAZY Urine pH 7.5 Urine Specific Mellott 1.019 Urine Protein NEG mg/dL Urine Glucose (UA) NEG mg/dL Urine Ketones NEG mg/dL Urine Occult Blood MOD Urine Nitrite NEG Urine Bilirubin NEG Urine Urobilinogen LESS THAN 2.0 MG/DL Urine Leukocyte Esterase NEG Urine RBC 5 /hpf Urine WBC 1 /hpf Urine Squamous Epithelial Cells 1 /hpf Microscopic Urinalysis Comment CULT NOT INDICATED Blood Urea Nitrogen 14 MG/DL Creatinine 0.83 MG/DL Random Glucose 83 MG/DL Total Protein 8.2 GM/DL Albumin 4.3 GM/DL Calcium Level 9.1 MG/DL Magnesium Level 2.1 MG/DL Alkaline Phosphatase 132 U/L Aspartate Amino Transf (AST/SGOT) 15 U/L Alanine Aminotransferase (ALT/SGPT) 22 U/L Total Bilirubin 0.4 MG/DL Sodium Level 140 MEQ/L Potassium Level 4.3 MEQ/L Chloride Level 107 MEQ/L Carbon Dioxide Level 25.9 MEQ/L Anion Gap 7 MEQ/L Estimat Glomerular Filtration Rate 86 ML/MIN Clue Cells (Wet Prep) NS Vaginal Trichomonas (Wet Prep) NS Vaginal Yeast (Wet Prep) NS Chlamydia trachomatis DNA (PCR) NOT DETECTED Neisseria gonorrhoeae DNA (PCR) NOT DETECTED MDM Medical Decision Making Medical Screen Exam Complete: Yes Emergency Medical Condition: Yes Medical Record Reviewed: Yes Differential Diagnosis IUD complication versus PID versus UTI versus STD versus colitis versus appendicitis Narrative Course 21-year-old female presents to the emergency department for evaluation. Patient appears without distress. She does have right lower quadrant tenderness , positive rebound tenderness and guarding. The pain does radiate to her umbilicus with deep palpation in the right lower quadrant. Pelvic is with a lot of blood in the vaginal vault. I am able to visualize the IUD strings. There are place. She has no CMT. Laboratory Tests Test 01/06/17 16:20 01/06/17 17:30 White Blood Count 7.4 TH/MM3 Red Blood Count 4.15 MIL/MM3 Hemoglobin 11.8 GM/DL Hematocrit 36.0 % Mean Corpuscular Volume 86.7 FL Mean Corpuscular Hemoglobin 28.5 PG Mean Corpuscular Hemoglobin Concent 32.9 % Red Cell Distribution Width 14.4 % Platelet Count 227 TH/MM3 Mean Platelet Volume 10.6 FL Neutrophils (%) (Auto) 65.4 % Lymphocytes (%) (Auto) 27.2 % Monocytes (%) (Auto) 5.3 % Eosinophils (%) (Auto) 1.5 % Basophils (%) (Auto) 0.6 % Neutrophils # (Auto) 4.8 TH/MM3 Lymphocytes # (Auto) 2.0 TH/MM3 Monocytes # (Auto) 0.4 TH/MM3 Eosinophils # (Auto) 0.1 TH/MM3 Basophils # (Auto) 0.0 TH/MM3 CBC Comment DIFF FINAL Differential Comment Urine Color YELLOW Urine Turbidity HAZY Urine pH 7.5 Urine Specific Mellott 1.019 Urine Protein NEG mg/dL Urine Glucose (UA) NEG mg/dL Urine Ketones NEG mg/dL Urine Occult Blood MOD Urine Nitrite NEG Urine Bilirubin NEG Urine Urobilinogen LESS THAN 2.0 MG/DL Urine Leukocyte Esterase NEG Urine RBC 5 /hpf Urine WBC 1 /hpf Urine Squamous Epithelial Cells 1 /hpf Microscopic Urinalysis Comment CULT NOT INDICATED Blood Urea Nitrogen 14 MG/DL Creatinine 0.83 MG/DL Random Glucose 83 MG/DL Total Protein 8.2 GM/DL Albumin 4.3 GM/DL Calcium Level 9.1 MG/DL Magnesium Level 2.1 MG/DL Alkaline Phosphatase 132 U/L Aspartate Amino Transf (AST/SGOT) 15 U/L Alanine Aminotransferase (ALT/SGPT) 22 U/L Total Bilirubin 0.4 MG/DL Sodium Level 140 MEQ/L Potassium Level 4.3 MEQ/L Chloride Level 107 MEQ/L Carbon Dioxide Level 25.9 MEQ/L Anion Gap 7 MEQ/L Estimat Glomerular Filtration Rate 86 ML/MIN Clue Cells (Wet Prep) NS Vaginal Trichomonas (Wet Prep) NS Vaginal Yeast (Wet Prep) NS Chlamydia trachomatis DNA (PCR) NOT DETECTED Neisseria gonorrhoeae DNA (PCR) NOT DETECTED CT of the abdomen and pelvis is done and reveals IUD in place. No acute abnormality. Results are discussed with the patient. I've encouraged her to still follow-up with MODESTA Glass. She agrees to return immediately with any acute worsening of symptoms. She has also been instructed to not breast-feed for the next 24 hours and to bottlefeed instead. She verbalizes understanding. Diagnosis Primary Impression: Abdominal pain Qualified Codes: R10.31 - Right lower quadrant pain Additional Impression: IUD (intrauterine device) in place Referrals: [facility] Primary Care Physician Patient Instructions: Abdominal Pain (ED), General Instructions, Intrauterine Device (DC) Additional Instructions: Follow-up with gynecology Return immediately with any acute worsening of symptoms Tylenol and/or ibuprofen as directed on package as needed for pain Med/Other Pt SpecificInfo: No Change to Meds Scripts No Active Prescriptions or Reported Meds Disposition: 01 DISCHARGE HOME Condition: Stable Yahaira Rush Jan 06, 2017 17:05
[2017-01-06] MEDS ORDERED: DIATRIZOATE MEGLUM/DIATRIZOATE SOD 9 ML CUP PO ONE (17:45)
[2017-01-06 19:47] LABS: CHLAMYDIA PCR NOT DETECTED (NOT DETECT); NEISSERIA PCR NOT DETECTED (NOT DETECT)
--- NOTE | 2017-01-06 20:13 | RADRPT ---
EXAM DATE/TIME: 01/06/2017 19:22 [place] COMPARISON: No previous studies available for comparison. INDICATIONS : IUD inserted one week ago since that time having lower abdomen pain IV CONTRAST: 80 cc Omnipaque 350 (iohexol) IV ORAL CONTRAST: Prescribed oral contrast ingested. RADIATION DOSE: 4.86 CTDIvol (mGy) MEDICAL HISTORY : Asthma SURGICAL HISTORY : None. ENCOUNTER: Initial ACUITY: 1 week PAIN SCALE: 8/10 LOCATION: Abdomen TECHNIQUE: Volumetric scanning of the abdomen and pelvis was performed. Using automated exposure control and ad justment of the mA and/or kV according to patient size, radiation dose was kept as low as reasonably achievable to obtain optimal diagnostic quality images. DICOM format image data is available electro nically for review and comparison. FINDINGS: LOWER LUNGS: The visualized lower lungs are clear. LIVER: Homogeneous density without lesion. There is no dilation of the biliary tree. No calcified gallston es. SPLEEN: Normal size without lesion. PANCREAS: Within normal limits. KIDNEYS: Normal in size and shape. There is no mass, stone or hydronephrosis. ADRENAL GLANDS: Within normal limits. VASCULAR: There is no aortic aneurysm. BOWEL/MESENTERY: The stomach, small bowel, and colon demonstrate no acute abnormality. There is no free intraperitone al air or fluid. ABDOMINAL WALL: Within normal limits. RETROPERITONEUM: There is no lymphadenopathy. BLADDER: No wall thickening or mass. REPRODUCTIVE: There is an IUD in place. This appears well-positioned. INGUINAL: There is no lymphadenopathy or hernia. MUSCULOSKELETAL: Within normal limits for patient age. CONCLUSION: IUD in good position. Gennaro Mcfadden MD on January 06, 2017 at 20:09 Board Certified Radiologist. This report was verified electronically.
[2017-01-21] MEDS ORDERED: LEVO1IUD4 (08:44)
[2017-01-21] MEDS ORDERED: METR500T10 PO (08:47)
== END 2017-01-06 20:46 | disposition home or self-care (01) ==
LOC: NEPD 15:53
DX: R10.31 Right lower quadrant pain (principal); R11.2 Nausea with vomiting, unspecified; R42 Dizziness and giddiness; D64.9 Anemia, unspecified; Z88.8 Allergy status to other drugs, medicaments and biological substances
CPT/HCPCS: 74177; 80053; 81001; 83735; 84703; 85025; 87210; 87491; 87591; 99285; Q9967; Q9963